=== PATIENT | female | born 1980 | race Caucasian/White ===

== ENCOUNTER 2017-01-09 13:09 | Emergency (ER) | payer SELFPAY ==
[2017-01-09 13:54] VITALS: BP 142/92
--- NOTE | 2017-01-09 14:16 | EDM.PDOC ---
ED HPI EYE COMPLAINT - General Chief Complaint: Eye Problems Stated Complaint: LEFT EYE BLEEDING Time Seen by Provider: 01/09/17 13:51 Source: Reports: Patient, RN notes reviewed History Limitations: Reports: No limitations - History of Present Illness INITIAL COMMENTS - FREE TEXT/NARRATIVE: The patient states that a coworker noticed blood in the patient's left eye today. The patient was unaware of it, as it is completely painless. She went to the walk-in clinic but was then told to come here. She also states that she has had a dry cough and scratchy throat, along with a feeling of a weight on her chest since 01/05/2017. She states that she has been wheezing. She states that her symptoms are worse if she is supine. No fever. No nausea, vomiting, constipation, or diarrhea. She has not tried any vuvd-[id number] remedies. - Related Data Allergies/ADRs: Allergies No Known Allergies Allergy (Verified 01/09/17 13:54) Home Meds: Ambulatory Orders Medication Instructions Recorded Confirmed Dextroamphetamine/Amphetamine 30 mg PO DAILY 01/09/17 01/09/17 [Adderall] buPROPion [Wellbutrin] 100 mg PO DAILY 01/09/17 01/09/17 Past Medical History Psychiatric History: Reports: ADHD, Depression - Past Surgical History HEENT Surgical History: Reports: Oral surgery ([place] teeth extraction), Tonsillectomy Social & Family History - Tobacco Use Smoking Status *Q: Current Some Day Smoker Years of Tobacco use: 1 Packs/Tins Daily: 0.2 - Caffeine Use Caffeine Use: Reports: Coffee - Alcohol Use Alcohol Use History: No - Recreational Drug Use Recreational Drug Use: No - Living Situation & Occupation Living situation: Reports: single, with significant other (Fiance) Occupation: employed ([employer]) ED ROS GENERAL - Review of Systems Review Of Systems: See Below Constitutional: Reports: no symptoms HEENT: Reports: No symptoms Respiratory: Reports: No Symptoms Cardiovascular: Reports: No symptoms Endocrine: Reports: no symptoms GI/Abdominal: Reports: No symptoms : Reports: no symptoms Musculoskeletal: Reports: no symptoms Skin: Reports: no symptoms Neurological: Reports: No Symptoms Psychiatric: Reports: No symptoms Hematologic/Lymphatic: Reports: no symptoms Immunologic: Reports: no symptoms ED EXAM GENERAL W FULL EYE - Physical Exam Exam: See Below Exam Limited By: No limitations General Appearance: alert, WD/WN, no apparent distress Eyelids: bilateral: normal appearance Conjunctiva & Sclera: left: subconjuctival hemorrhage Cornea Exam: bilateral: normal appearance Extraocular Movements: bilateral: intact Pupils: normal accommodation Pupillary Size: bilateral: 5 mm Pupillary Reaction: bilateral: brisk Anterior Chamber: bilateral: normal appearance Ears: normal external exam, hearing grossly normal Nose: normal inspection, no blood Throat/Mouth: Normal inspection, Normal lips, Normal voice, No airway compromise Head: atraumatic, normocephalic Neck: normal inspection, full range of motion Respiratory/Chest: no respiratory distress, lungs clear, normal breath sounds, no accessory muscle use Cardiovascular: normal peripheral pulses, regular rate, rhythm, no gallop, no JVD, no murmur, no rub Extremities: normal inspection, normal range of motion, normal capillary refill Neurological: alert, oriented, normal cognition, normal gait, no motor/sensory deficits Psychiatric: normal affect Skin Exam: Warm, Dry, Intact, Normal color, No rash Lymphatic: no adenopathy Course - Vital Signs Last Recorded V/S: Last Vital Signs Temp 36.9 C 01/09/17 13:51 Pulse 80 01/09/17 13:51 Resp 18 01/09/17 13:51 BP 142/92 H 01/09/17 13:51 Pulse Ox 98 01/09/17 13:51 - Re-Assessments/Exams Free Text/Narrative Re-Assessment/Exam: 01/09/17 14:11 On examination of the patient's left eye, she has a subconjunctival hemorrhage superior to her cornea. I reassured her that nothing needs to be done about this, and that it will resolve on its own. The patient and also asked me to check out her cough. Clinically, the patient has a viral URI with cough. It does not appear that she has bronchitis, as it is primarily a dry cough, scant, without significant malaise. She states that she has had some wheezing, but I do not hear any on auscultation. Further, her cough is worse when she is supine, which is far more likely to be associated with postnasal drip. Departure - Departure Time of Disposition: 14:13 Disposition: Home, Self-Care 01 Condition: good Clinical Impression: Subconjunctival hemorrhage of left eye, Viral URI with cough Instructions: Upper Respiratory Infection, Adult, [id number], Subconjunctival Hemorrhage Referrals: Leonarda Richards PA [Primary Care Provider] - Forms: ED Department Discharge Additional Instructions: You were seen in the emergency room for blood in your left thigh, and a cough. On examination, you have a subconjunctival hemorrhage of your left eye. As discussed, nothing needs to be done about this, and it will resolve on its own. Based on your history and physical examination, it is more likely that you have a viral URI with cough and bronchitis. As discussed, there is no treatment for a viral URI - it will have to run its course. We do not recommend you take any [id number] cough or cold remedies, as they do not work, but do have side effects. Followup with your PCP, Leonarda Richards, as needed. If any other problems, please do not hesitate to return to the ER.
== END 2017-01-09 14:23 | disposition home or self-care (01) ==
LOC: JD.ED 13:09
DX: H11.32 Conjunctival hemorrhage, left eye (principal); J06.9 Acute upper respiratory infection, unspecified; F17.210 Nicotine dependence, cigarettes, uncomplicated; F32.9 Major depressive disorder, single episode, unspecified; Z98.890 Other specified postprocedural states; Z79.899 Other long term (current) drug therapy
CPT/HCPCS: 99282; 99283